=== PATIENT | female | born 2000 | race Caucasian/White ===

== ENCOUNTER 2021-11-14 19:55 | Emergency (ER) | payer OTHER ==
[2021-11-14 20:50] LABS: HEMOGLOBIN 14.9 gm/dl (12.3-15.3); RED BLOOD COUNT 4.87 M/UL (4.00-5.10); WHITE BLOOD COUNT 11.4 K/UL (4.5-11.0)
[2021-11-14 21:14] LABS: BUN/CREATININE RATIO 14 (0-10)
[2021-11-14] MEDS ORDERED: OMNICEF 300 MG300 MG PO (21:27)
[2021-11-15] MEDS ORDERED: AUGMENTIN 875-1 EACH PO (01:08)
[2021-11-15] MEDS ORDERED: PERCOCET 5/325 T1 EA PO (01:08)
== END 2021-11-15 01:23 | disposition home or self-care (01) ==
LOC: ER1 19:55
PROVIDERS: Physician Assistant
DX: N39.0 Urinary tract infection, site not specified (principal); K63.89 Other specified diseases of intestine; F17.210 Nicotine dependence, cigarettes, uncomplicated
CPT/HCPCS: 80048; 81001; 83605; 84703; 85025; 87040; 87086; 96374; 96375; 99284; J0696; J2270; J2405